=== PATIENT | female | born 1985 | race African-American/Black ===

== ENCOUNTER 2021-12-06 19:21 | Emergency (ER) | payer SELFPAY ==
[~2021-12-06] VITALS: Ht 162.6 cm; Wt 74.8 kg
--- NOTE | 2021-12-06 21:00 | NUR ---
BIBS C/O DIZZINESS AND HEADACHE S/P HYDROTHERAPY CLEANSE @330PM. PATIENT ALERT AND ORIENTED X3. AMBULATORY WITH NON LABORED BREATHING IN BED 06 ON MONITOR AWAITING MD NUÑEZ.
[2021-12-06] MEDS ORDERED: ONDANSETRON 4 MG TAB.RAPDIS SL ONE (21:30)
[2021-12-06] MEDS ORDERED: FAMOTIDINE (20 MG) 20 MG TABLET PO ONE (21:30)
[2021-12-06] MEDS ORDERED: MAG HYDROX/AL HYDROX/SIMETH 30 ML UDC PO ONE (21:30)
[2021-12-06] MEDS ORDERED: FAMOTIDINE (20 MG) 20 MG TABLET ONE (21:34)
[2021-12-06] MEDS ORDERED: MAG HYDROX/AL HYDROX/SIMETH 30 ML UDC ONE (21:34)
[2021-12-06] MEDS ORDERED: ONDANSETRON 4 MG TAB.RAPDIS ONE (21:34)
[2021-12-06 21:45] VITALS: BP 131/70
--- NOTE | 2021-12-06 22:22 | NUR ---
Patient discharged to home in stable condition. Written and verbal after care instructions given. Patient verbalizes understanding of instruction.
== END 2021-12-06 22:23 | disposition home or self-care (01) ==
LOC: ER 19:35
DX: R11.2 Nausea with vomiting, unspecified (principal); R10.9 Unspecified abdominal pain; Z60.2 Problems related to living alone
CPT/HCPCS: 99284; Q0162